=== PATIENT | male | born 1960 | race Caucasian/White ===

== ENCOUNTER → 2024-03-14 12:32 | Outpatient (CLI) | payer BC, SELFPAY ==
--- NOTE | 2024-03-14 | DI.MRI.S_ITS ---
PROCEDURE: MR KNEE LT WO CON INDICATIONS: CHRONIC PAIN OF LEFT KNEE / HX OF TEAR OF MENISCUS TECHNIQUE: Noncontrast sagittal PD fast spin echo and T2 fast spin echo with fat saturation, sagittal 3-D FLASH with fat saturation; coronal T1 spin echo and PD fast spin echo with fat saturation, and axial PD fast spin echo with fat saturation through the knee. COMPARISON: None. FINDINGS: Image quality: Excellent. Menisci: Oblique tear involving posterior horn of medial meniscus extending to inferior articulating surface. There is also a vertical tear involving body of medial meniscus extending to both superior and inferior articulating surfaces. The lateral meniscus is intact. The meniscal root ligaments appear intact. Cruciate ligaments: The anterior and posterior cruciate ligaments appear intact. Medial structures: The medial collateral ligament appears mildly thickened at its femoral insertion. Visualized portions of the pes anserinus tendons appear normal. No abnormal bursal fluid. Lateral structures: The lateral collateral ligament, long and short heads of the biceps femoris tendon appear thickened. The popliteus tendon appears normal. There is fluid and soft tissue edema deep to the iliotibial band suggest clinical correlation for iliotibial band syndrome Anterior structures: The quadriceps and patellar tendons appear intact. The lateral patellofemoral ligament is thickened with adjacent soft tissue edema. Patellar alignment is normal. No femoral trochlear dysplasia or ventral trochlear prominence. No edema in the infrapatellar fat pad. Bones and cartilage: No bone marrow contusions or fractures. Mild to moderate tricompartmental osteoarthritis and chondromalacia is seen more notably in medial femoral tibial compartment. Joint space: There is small to moderate knee joint fluid. No Cabezas's cyst. Normal appearing synovial plicae are incidentally noted. IMPRESSION: 1. Oblique tear involving posterior horn of medial meniscus extending to inferior articulating surface. Vertical tear involving body of medial meniscus extending to both superior and inferior articulating surfaces. The lateral meniscus is intact. 2. The cruciate ligaments are intact. 3. Low-grade proximal MCL and LCL sprain. Tendinosis involving distal biceps femorals tendon. 4. Edema and fluid situated between iliotibial band and lateral femoral condyle which can be seen associated with clinical diagnosis of iliotibial band syndrome. 5. Low-grade sprain involving lateral patellofemoral ligament. No ligament rupture. Patellar alignment is normal. 6. [id number] tricompartmental osteoarthritis and chondromalacia most notably in medial femoral tibial compartment. No fracture or dislocation. Small to moderate joint effusion, no loose bodies. Dictated by: Cornell Owusu M.D. on 03/14/2024 at 17:22 Approved by: Cornell Owusu M.D. on 03/14/2024 at 17:26
== END ==
PROVIDERS: Referring Provider Physician Assistant; Visit Provider Physician Assistant
DX: S83.242A Other tear of medial meniscus, current injury, left knee, initial encounter (principal); S83.412A Sprain of medial collateral ligament of left knee, initial encounter; S83.422A Sprain of lateral collateral ligament of left knee, initial encounter; S76.112A Strain of left quadriceps muscle, fascia and tendon, initial encounter; M17.12 Unilateral primary osteoarthritis, left knee; M94.262 Chondromalacia, left knee; M25.462 Effusion, left knee; M25.562 Pain in left knee; G89.29 Other chronic pain; Z87.828 Personal history of other (healed) physical injury and trauma
CPT/HCPCS: 73721